=== PATIENT | male | born 1990 | race American Indian/Alaskan Native ===

== ENCOUNTER 2017-10-04 13:46 | Emergency (ER) | payer OTHER ==
[2017-10-04] MEDS ORDERED: TYLENOL #3 PO ONE (18:18)
--- NOTE | 2017-10-04 18:18 | Emergency Department Report ---
ED Abdominal Pain HPI - General Chief Complaint: Headache Stated Complaint: FLU-LIKE SYMPTOMS Time Seen by Provider: 10/04/17 17:33 Source: patient Mode of arrival: Ambulatory Limitations: No Limitations - Related Data Allergies Allergy/AdvReac Type Severity Reaction Status Date / Time No Known Allergies Allergy Unverified 10/04/17 13:50 ED Review of Systems ROS: Stated complaint: FLU-LIKE SYMPTOMS Other details as noted in HPI ED Past Medical Hx - Past Medical History Previous Medical History?: No - Surgical History Past Surgical History?: No - Social History Smoking Status: Current Every Day Smoker Substance Use Type: None ED Physical Exam - General Limitations: No Limitations ED Course Vital Signs 10/04/17 13:50 Temperature 99.8 F H Pulse Rate 104 H Respiratory 20 Rate Blood Pressure 145/100 O2 Sat by Pulse 100 Oximetry Critical care attestation.: If time is entered above; I have spent that time in minutes in the direct care of this critically ill patient, excluding procedure time. ED Disposition Condition: Stable Referrals: PRIMARY CARE [Primary Care Provider] - 3-5 Days
--- NOTE | 2017-10-04 19:46 | Emergency Department Report ---
ED Headache HPI - General Chief Complaint: Headache Stated Complaint: FLU-LIKE SYMPTOMS Time Seen by Provider: 10/04/17 17:33 Source: patient, family Exam Limitations: no limitations (no better than when I first when I first was emergent at 4 shifts for [employer] more doctors and he had a whole bunch of experienced) - History of Present Illness Initial Comments: Old from the left when trying came patient reports that he feels hot. The inside and cold on the outside. He reports he has headache with sore throat that started 2 days ago. He denies any nasal congestion, drainage, cough, difficulty breathing, chest pain. Patient reports that he took over-the- counter medication but it did not help. Blood pressure is 145/100 and he said that he does have high blood pressure but he's been told that his blood pressure has been high in the past. Reports headache in the front of his head that feels like pressure. Patient had 5 out of 10. Pain is intermittent. Timing/Duration: waxing and waning, other (2 days) Quality: moderate (5/10) Head Injury Location: frontal Recent Head Trauma: no recent headache/trauma Modifying Factors: improves with: medication, rest Associated Symptoms: fever/chills. denies: confusion, fatigue, facial pain, flushing, loss of consciousness, nausea/vomiting, nasal congestion, nasal drainage, numbness in legs/feet, rash, seizures, sinus infection, stiff neck, vision changes, weakness Allergies/Adverse Reactions: Allergies No Known Allergies Allergy (Unverified 10/04/17 13:50) Home Medications: Ambulatory Orders Ibuprofen [Motrin] 600 mg PO Q8H PRN 5 Days #15 tablet 10/04/17 Penicillin V Potassium 500 mg PO Q8H 10 Days #30 tablet 10/04/17 traMADol [Ultram] 50 mg PO Q6HR PRN 5 Days #20 tablet 10/04/17 ED Review of Systems ROS: Stated complaint: FLU-LIKE SYMPTOMS Other details as noted in HPI Comment: All other systems reviewed and negative Constitutional: no symptoms reported Eyes: denies: eye pain, vision change ENT: throat pain. denies: ear pain, dental pain, congestion Respiratory: no symptoms reported Cardiovascular: denies: chest pain, palpitations, dyspnea on exertion, edema, syncope, paroxysmal nocturnal dyspnea Gastrointestinal: denies: abdominal pain, nausea, vomiting, diarrhea, constipation Musculoskeletal: myalgia (body aches). denies: back pain, joint swelling, arthralgia Skin: denies: rash Neurological: headache. denies: weakness, numbness, paresthesias, confusion, abnormal gait, other ED Past Medical Hx - Past Medical History Previous Medical History?: No - Surgical History Past Surgical History?: No - Family History Family history: no significant - Social History Smoking Status: Current Every Day Smoker Substance Use Type: None - Medications Home Medications: Home Medications Medication Instructions Recorded Confirmed Last Taken Type Ibuprofen [Motrin] 600 mg PO Q8H PRN 5 Days #15 tablet 10/04/17 Unknown Rx Penicillin V Potassium 500 mg PO Q8H 10 Days #30 tablet 10/04/17 Unknown Rx traMADol [Ultram] 50 mg PO Q6HR PRN 5 Days #20 tablet 10/04/17 Unknown Rx ED Physical Exam - General Limitations: No Limitations General appearance: alert, in no apparent distress - Head Head exam: Present: atraumatic, normocephalic, normal inspection - Expanded Head Exam Expanded Head exam: Absent: laceration, abrasion, contusion, hematoma, racoon eyes, billings's sign, general tenderness, tenderness of temporal artery, CSF rhinorrhea , CSF otorrhea - Eye Eye exam: Present: normal appearance, PERRL, EOMI. Absent: nystagmus, periorbital swelling, periorbital tenderness Pupils: Present: normal accommodation - ENT ENT exam: Present: mucous membranes moist, TM's normal bilaterally, normal external ear exam, other (Nasal mucosa is normal.). Absent: normal exam, normal orophraynx (patient with pharyngeal erythema, swelling and exudate. Oral airways patent. Uvula is midline and no peritonsillar abscess noted.) - Neck Neck exam: Present: normal inspection, full ROM, lymphadenopathy (enlarged anterior cervical lymph nodes), other (No C-spine tenderness). Absent: tenderness, meningismus, thyromegaly - Expanded Neck Exam Expanded Neck exam: Absent: tenderness, midline deformity, anterior neck swelling, thyroid mass, carotid bruit, tracheal deviation - Respiratory Respiratory exam: Present: normal lung sounds bilaterally. Absent: respiratory distress, chest wall tenderness, accessory muscle use - Cardiovascular Cardiovascular Exam: Present: normal rhythm, tachycardia, normal heart sounds. Absent: systolic murmur, diastolic murmur - GI/Abdominal GI/Abdominal exam: Present: soft, normal bowel sounds. Absent: distended, tenderness, guarding, rebound, rigid, organomegaly, mass, bruit, pulsatile mass , hernia - Extremities Exam Extremities exam: Present: normal inspection, full ROM, normal capillary refill , other (no clubbing, cyanosis or edema. +2 pulses to all extremities. No neurovascular compromise.). Absent: tenderness, pedal edema, joint swelling, calf tenderness - Back Exam Back exam: Present: normal inspection, full ROM, other (ambulates without any difficulties.). Absent: tenderness, CVA tenderness (R), CVA tenderness (L), muscle spasm, paraspinal tenderness, vertebral tenderness, rash noted - Neurological Exam Neurological exam: Present: alert, oriented X3, normal gait, reflexes normal. Absent: motor sensory deficit - Expanded Neurological Exam Expanded Neurological exam: Absent: innattentive, memory loss-remote event, memory loss- recent event, ataxia, receptive aphasia, expressive aphasia, total aphasia, tremor, protecting the airway Patient oriented to: Present: person, place, time Speech: Present: fluid speech Cranial nerves: EOM's Intact: Normal, Gag Reflex: Normal, Tongue Deviation: Normal, Nystagmus: Normal, Facial Sensation: Normal, Facial Palsy with Forehead Movement: Normal, Facial Palsy without Forehead Movement: Normal Cerebellar function: Finger to Nose: Normal, Romberg: Normal Upper motor neuron: Pronator Drift: Normal, Sensory Extinction: Normal Sensory exam: Upper Extremity Light Touch: Normal, Upper Extremity Pin Prick: Normal, Upper Extremity Temperature: Normal, UE 2 Point Discrimination: Normal, Lower Extremity Light Touch: Normal, Lower Extremity Pin Prick: Normal, Lower Extremity Temperature: Normal, LE 2 Point Discrimination: Normal Motor strength exam: RUE: 5, LUE: 5, RLE: 5, LLE: 5 DTR: bicep (R): 2+, bicep (L): 2+, tricep (R): 2+, tricep (L): 2+, knee (R): 2+ , knee (L): 2+, ankle (R): 2+, ankle (L): 2+ Best Eye Response (Naeem): (4) open spontaneously Best Motor Response (Mercer): (6) obeys commands Best Verbal Response (Mercer): (5) oriented Naeem Total: 15 - Psychiatric Psychiatric exam: Present: normal affect, normal mood - Skin Skin exam: Present: warm, dry, intact, normal color. Absent: rash ED Course Vital Signs 10/04/17 13:50 Temperature 99.8 F H Pulse Rate 104 H Respiratory 20 Rate Blood Pressure 145/100 O2 Sat by Pulse 100 Oximetry Last temperature was 99.2 and heart rate apical is at 82. - Reevaluation(s) Reevaluation #1: 10/04/17 19:00 Patient complaining a headache with sore throats and fever and chills. Patient given Tylenol 3 2 tablets in the emergency room and strep and flu collected and pending. Patient able to tolerate oral liquids in the emergency room without any nausea or vomiting. Patient is neurologically intact. Reevaluation #2: 10/04/17 19:48 Patient remained neurologically intact. Strep and flu test came back negative strep culture is pending. Patient reports he still has headache although it's better. Patient to receive Motrin 800 mg by mouth. He is drinking oral fluids and tolerating well. Reevaluation #3: 10/04/17 20:23 Patient reports that this pain is better and he is ready to go. He is able to tolerate fluid throughout his hospital stay without any nausea or vomiting. Temperature is better and his heart rate is less than 80. Blood pressure still mildly elevated but patient has elevated blood pressure in the past. ED Medical Decision Making - Lab Data Rapid strep test negative and cultures are pending The and B- - Medical Decision Making ED Course: She presented to emergency room complaining of headache frontally and also fever, chills, body ache with absence of respiratory symptoms. He is also complaining of sore throat worse with yawning, swallowing and eating. Denies any drooling. Physical findings for exudative oropharynx with erythema, enlarged anterior cervical lymph nodes bilaterally, fever with tachycardia, neck exam, neurological exam, back and abdominal exam is normal. Patient had strep which show rapid strep is negative and culture pending. Influenza A and B -. Based on Centor criteria with patient having exudative pharyngitis, enlarged cervical lymph nodes, fever and chills, tachycardia and headache without any respiratory symptoms I we will go ahead and treat patient for throat. Rapid strep test is not always when used in diagnosis of strep throat. This was explained to patient in detail and he voiced understanding. Patient discharged home with prescription for penicillin VK, Ultram and Motrin. His heart rate is stabilized, blood pressure still mildly elevated and is temperature is low-grade. Patient orally challenge in the emergency room and tolerated liquids well. He knows he will need to follow up with outpatient primary care and I will refer him as needed. He should also aware that his blood pressures elevated and that he needs to keep a log of his blood pressure and take to primary care visit with him. Critical care attestation.: If time is entered above; I have spent that time in minutes in the direct care of this critically ill patient, excluding procedure time. ED Disposition Clinical Impression: Exudative pharyngitis, Body aches, Fever in adult, Cervical adenopathy, Elevated blood-pressure reading without diagnosis of hypertension Nonintractable episodic headache Qualifiers: Headache type: unspecified Qualified Code(s): R51 - Headache Disposition: DC- TO HOME OR SELFCARE Is pt being admited?: No Does the pt Need Aspirin: No Condition: Stable Instructions: Pharyngitis (ED), Strep Throat (ED), Fever in Adults (ED), Acute Headache (ED), Hypertension (ED) Additional Instructions: Please gargle with warm saltwater 3 times a day Take Ultram for headache but please do not drive or operate heavy machinery while taking this medication Please rest for 72 hours Take Antibiotic as prescribed InCrease your fluid intake Followup with your primary care physician in 2 days and if he do not have one you can follow-up at [facility] Prescriptions: Ibuprofen [Motrin] 600 mg PO Q8H PRN 5 Days #15 tablet PRN Reason: Pain Penicillin V Potassium 500 mg PO Q8H 10 Days #30 tablet traMADol [Ultram] 50 mg PO Q6HR PRN 5 Days #20 tablet PRN Reason: Pain Referrals: PRIMARY CARE, [Primary Care Provider] - 10/06/[address] [facility] [place] [Outside] - 10/06/17 Forms: Accompanied Note, Work/School Release Form(ED)
[2017-10-04] MEDS ORDERED: MOTRIN PO ONE (19:48)
[2017-10-04 22:53] VITALS: BP 158/100
== END 2017-10-04 20:40 | disposition home or self-care (01) ==
LOC: ED 13:46
DX: J02.9 Acute pharyngitis, unspecified (principal); R59.0 Localized enlarged lymph nodes; R51 Headache; M79.1 Myalgia; R03.0 Elevated blood-pressure reading, without diagnosis of hypertension; F17.200 Nicotine dependence, unspecified, uncomplicated
CPT/HCPCS: 87116; 87400; 87430; 99283

== ENCOUNTER 2019-06-19 22:42 | Emergency (ER) | payer SELFPAY ==
[2019-06-19 22:52] VITALS: BP 145/92
[2019-06-20] MEDS ORDERED: TYLENOL PO ONE (01:08)
--- NOTE | 2019-06-20 01:18 | Emergency Department Report ---
ED Headache HPI - General Chief Complaint: Headache Stated Complaint: HEADACHES Time Seen by Provider: 06/20/19 01:07 Source: patient Exam Limitations: no limitations - History of Present Illness Initial Comments: 28-year-old male presents to the emergency room for intermittent headaches for over a year. Patient has not taken anything for his headache. Patient states he did not know what to take for headache. Patient states that he'll often throb and tingle. Patient denies any nausea vomiting no fever no chills no facial droop no weakness. Patient denies any trauma. Timing/Duration: other (over a year) Quality: throbbing Recent Head Trauma: no recent headache/trauma Allergies/Adverse Reactions: Allergies No Known Allergies Allergy (Unverified 10/04/17 13:50) Home Medications: Ambulatory Orders Ibuprofen [Motrin] 600 mg PO Q8H PRN 5 Days #15 tablet 10/04/17 Penicillin V Potassium 500 mg PO Q8H 10 Days #30 tablet 10/04/17 traMADol [Ultram] 50 mg PO Q6HR PRN 5 Days #20 tablet 10/04/17 ED Review of Systems ROS: Stated complaint: HEADACHES Other details as noted in HPI Comment: All other systems reviewed and negative ED Past Medical Hx - Past Medical History Previous Medical History?: No - Surgical History Past Surgical History?: No - Social History Smoking Status: Never Smoker Substance Use Type: None - Medications Home Medications: Home Medications Medication Instructions Recorded Confirmed Last Taken Type Ibuprofen [Motrin] 600 mg PO Q8H PRN 5 Days #15 tablet 10/04/17 Unknown Rx Penicillin V Potassium 500 mg PO Q8H 10 Days #30 tablet 10/04/17 Unknown Rx traMADol [Ultram] 50 mg PO Q6HR PRN 5 Days #20 tablet 10/04/17 Unknown Rx ED Physical Exam - General Limitations: No Limitations General appearance: alert, in no apparent distress - Head Head exam: Present: atraumatic, normocephalic - Eye Eye exam: Present: normal appearance - ENT ENT exam: Present: mucous membranes moist - Neurological Exam Neurological exam: Present: alert, oriented X3, normal gait - Psychiatric Psychiatric exam: Present: normal affect, normal mood - Skin Skin exam: Present: warm, dry, intact, normal color. Absent: rash ED Course Vital Signs 06/19/19 06/19/19 22:47 23:13 Temperature 98.6 F 98.6 F Pulse Rate 93 H 92 H Respiratory 18 18 Rate Blood Pressure 145/92 145/92 O2 Sat by Pulse 100 100 Oximetry ED Medical Decision Making - Medical Decision Making 28-year-old male presents to the emergency room for intermittent headaches for over a year. Patient has not taken anything for his headache. Patient states he did not know what to take for headache. Patient states that he'll often throb and tingle. Patient denies any nausea vomiting no fever no chills no faci al droop no weakness. Patient denies any trauma. Critical care attestation.: If time is entered above; I have spent that time in minutes in the direct care of this critically ill patient, excluding procedure time. ED Disposition Condition: Stable Referrals: SHAYLEE SHAY MD [Primary Care Provider] - 3-5 Days
== END 2019-06-20 02:30 | disposition left against medical advice (07) ==
LOC: ED 22:42
DX: R51 Headache (principal); Z79.899 Other long term (current) drug therapy

== ENCOUNTER 2019-06-24 13:38 | Emergency (ER) | payer SELFPAY ==
--- NOTE | 2019-06-24 13:57 | Emergency Department Report ---
Chief Complaint: Urogenital-Male Stated Complaint: STD CHECK Time Seen by Provider: 06/24/19 13:53 - HPI History of Present Illness: NO SYMPTOMS WOMAN FRIEND TOLD HIM SHE HAS TRICH AND HE NEEDS TREATED NO DISCHARGE NO TESTICULAR PAIN NO DYSURIA - ROS Review of Systems: NO SYMPTOMS - Exam Vital Signs: Vital Signs 06/24/19 14:05 Temperature 98.1 F Pulse Rate 106 H Respiratory 18 Rate Blood Pressure 140/88 O2 Sat by Pulse 100 Oximetry Physical Exam: NAD VSS A/O ABD SNT NO CVA TENDERNESS MSE screening note: Focused history and physical exam performed. Due to findings the following was ordered: NO LIFE THREAT PT EDUCATED AND GIVEN APPROPRIATE REFERRALS Patient discussed with doctor:: DIDIER LOVELACE ED Medical Decision Making - Medical Decision Making NO SYMPTOMS NO DC NO TESTICULAR PAIN EDUCATED ON STI PREVENTION, DIAGNOSIS AND TREATMENT ED Disposition for MSE Clinical Impression: Well adult Disposition: DC-01 TO HOME OR SELFCARE Is pt being admited?: No Does the pt Need Aspirin: No Condition: Stable Instructions: Chlamydia Infection (ED), Sexually Transmitted Diseases (ED), Safe Sex (ED), Gonococcal Urethritis (ED) Additional Instructions: SEE ATTACHED Time of Disposition: 14:05
[2019-06-24 14:07] VITALS: BP 140/88
== END 2019-06-24 14:05 | disposition home or self-care (01) ==
LOC: ED 13:38
DX: Z00.00 Encounter for general adult medical examination without abnormal findings (principal)

== ENCOUNTER 2020-01-11 08:16 | Emergency (ER) | payer SELFPAY ==
[2020-01-11 08:25] VITALS: BP 158/103
--- NOTE | 2020-01-11 12:00 | Emergency Department Report ---
Upper Extremity - HPI Chief Complaint: Extremity Injury, Upper Stated Complaint: RIGHT SHOULDER PAIN Time Seen by Provider: 01/11/20 11:45 Upper Extremity: Right Shoulder (Status post treatment follow-up plan basketball 3 to 4 months ago reports having continued pain off and on to the right shoulder since that time and he which he notes some occasional swelling off and on around the area of the clavicle reports for range of motion no numbness or numbness or tingling no shortness of breath no chest pain palpitations no fever chills or sweats.) Symptoms: Yes Pain with Movement, No Deformity, No Numbness, No Weakness, No Swelling, No Bruising/Ecchymosis, No Laceration or Abrasion ED Review of Systems ROS: Stated complaint: RIGHT SHOULDER PAIN Other details as noted in HPI Comment: All other systems reviewed and negative ED Past Medical Hx - Past Medical History Previous Medical History?: No - Surgical History Past Surgical History?: Yes Additional Surgical History: left arm - Social History Smoking Status: Current Every Day Smoker Substance Use Type: Alcohol - Medications Home Medications: Home Medications Medication Instructions Recorded Confirmed Last Taken Type Ibuprofen [Motrin] 600 mg PO Q8H PRN 5 Days #15 tablet 10/04/17 Unknown Rx Penicillin V Potassium 500 mg PO Q8H 10 Days #30 tablet 10/04/17 Unknown Rx traMADoL [Ultram] 50 mg PO Q6HR PRN 5 Days #20 tablet 10/04/17 Unknown Rx Upper Extremity Exam - Exam General: Vital signs noted. No distress. Alert and acting appropriately. Head and Torso: No HEENT Abnormality, No Neck Tenderness, No Chest/Lungs Abnormality, No Abdominal Tenderness, No Back Tenderness Shoulder Exam: Yes Normal Range of Motion in Shoulder, No Shoulder Tenderness, No Clavicle Tenderness, No Shoulder Deformity, No AC Joint Tenderness Arm Exam: No Arm/Humerus Tenderness, No Arm Deformity Elbow: No Elbow Tenderness, No Normal Range of Motion in Elbow, No Elbow Deformity Forearm: No Forearm Tenderness, No Forearm Deformity, No Pain with Pronation, No Pain with Supination Wrist: Yes Normal ROM in Wrist, No Wrist Tenderness, No Wrist Deformity, No Snuffbox Tenderness, No Pain with Axial Thumb Compression Hand: Yes Normal ROM in Digit(s), No Hand Tenderness, No Hand Deformity, No Digit Tenderness, No Digit(s) Deformity, No Tendon Dysfunction CMS Exam: No Broken Skin, No Normal Distal Pulses, No Normal Capillary Refill, No Normal Distal Sensation ED Course Vital Signs 01/11/20 08:20 Temperature 98.3 F Pulse Rate 128 H Respiratory 19 Rate Blood Pressure 158/103 O2 Sat by Pulse 100 Oximetry ED Medical Decision Making - Medical Decision Making 29-year-old male status post treatment for 3 to 4 months ago with continued nagging shoulder pain has not tried any [id number] analgesics or ice. Is no acute distress he he is ambulatory with no limitations no shortness of breath chest pain or palpitations. Heart rate did show to be 128 on the triage a bdomen examination heart rate was only 87 Critical care attestation.: If time is entered above; I have spent that time in minutes in the direct care of this critically ill patient, excluding procedure time. ED Disposition Clinical Impression: Chronic right shoulder pain Disposition: Z- MED SCREENING EXAM-LEFT Is pt being admited?: No Does the pt Need Aspirin: No Condition: Stable Instructions: Chronic Pain (ED) Additional Instructions: Please use ice and [id number] anti-inflammatories as we discussed follow- up with your primary care provider or orthopedic as needed Referrals: FABIANO LOCO MD [Primary Care Provider] - 3-5 Days JAYCE SELBY MD [Staff Physician] - 3-5 Days
== END 2020-01-11 12:22 | disposition left against medical advice (07) ==
LOC: ED 08:16
DX: M25.511 Pain in right shoulder (principal); G89.29 Other chronic pain; F17.200 Nicotine dependence, unspecified, uncomplicated; Z79.1 Long term (current) use of non-steroidal anti-inflammatories (NSAID); Z79.899 Other long term (current) drug therapy

== ENCOUNTER 2022-04-17 07:34 | Emergency (ER) | payer SELFPAY ==
--- NOTE | 2022-04-17 12:03 | Emergency Department Report ---
ED General Adult HPI - General Chief complaint: Medical Clearance Stated complaint: SWOLLOW SOME PLASTIC Time Seen by Provider: 04/17/22 11:12 Source: patient Mode of arrival: Ambulatory Limitations: No Limitations - History of Present Illness Initial comments: This is a 31-year-old male nontoxic, well nourished in appearance, no acute signs of distress presents to the ED with c/o of possible swallowing a plastic wrapper. Patient stated that he was eating [place] fries and thought there was a possible plastic wrapper which was not there after he finished his [place]. Otherwise denies any other symptoms or complaints. Denies any nausea, vomiting, chest pain, shortness of breath, abdominal pain, fever, chills, headache, stiff neck, numbness, tingling. Patient denies any allergies or significant past medical history. -: days(s) (1) Severity scale (0 -10): 0 Improves with: none Worsens with: none Associated Symptoms: denies other symptoms. denies: confusion, chest pain, cough, diaphoresis, fever/chills, headaches, loss of appetite, malaise, nausea/vomiting, rash, seizure, shortness of breath, syncope, weakness Treatments Prior to Arrival: none - Related Data Previous Rx's Medication Instructions Recorded Last Taken Type Ibuprofen [Motrin] 600 mg PO Q8H PRN 5 Days #15 tablet 10/04/17 Unknown Rx Penicillin V Potassium 500 mg PO Q8H 10 Days #30 tablet 10/04/17 Unknown Rx traMADoL [Ultram] 50 mg PO Q6HR PRN 5 Days #20 tablet 10/04/17 Unknown Rx Allergies Allergy/AdvReac Type Severity Reaction Status Date / Time No Known Allergies Allergy Unverified 10/04/17 13:50 ED Review of Systems ROS: Stated complaint: SWOLLOW SOME PLASTIC Other details as noted in HPI Comment: All other systems reviewed and negative Constitutional: denies: chills, fever Eyes: denies: eye pain, eye discharge, vision change ENT: denies: ear pain, throat pain Respiratory: denies: cough, shortness of breath, wheezing Cardiovascular: denies: chest pain, palpitations Endocrine: no symptoms reported Gastrointestinal: denies: abdominal pain, nausea, diarrhea Genitourinary: denies: urgency, dysuria Musculoskeletal: denies: back pain, joint swelling, arthralgia Skin: denies: rash, lesions Neurological: denies: headache, weakness, paresthesias Psychiatric: denies: anxiety, depression Hematological/Lymphatic: denies: easy bleeding, easy bruising ED Past Medical Hx - Past Medical History Previous Medical History?: Yes Hx Hypertension: Yes (no meds) - Surgical History Past Surgical History?: Yes Additional Surgical History: left arm - Social History Smoking Status: Current Every Day Smoker Substance Use Type: Alcohol - Medications Home Medications: Home Medications Medication Instructions Recorded Confirmed Last Taken Type Ibuprofen [Motrin] 600 mg PO Q8H PRN 5 Days #15 tablet 10/04/17 Unknown Rx Penicillin V Potassium 500 mg PO Q8H 10 Days #30 tablet 10/04/17 Unknown Rx traMADoL [Ultram] 50 mg PO Q6HR PRN 5 Days #20 tablet 10/04/17 Unknown Rx ED Physical Exam - General Limitations: No Limitations General appearance: alert, in no apparent distress - Head Head exam: Present: atraumatic, normocephalic - Eye Eye exam: Present: normal appearance - ENT ENT exam: Present: normal exam, normal orophraynx - Neck Neck exam: Present: normal inspection, full ROM. Absent: lymphadenopathy - Respiratory Respiratory exam: Present: normal lung sounds bilaterally. Absent: respiratory distress, wheezes, rales, rhonchi, stridor, chest wall tenderness, accessory muscle use, decreased breath sounds, prolonged expiratory - Cardiovascular Cardiovascular Exam: Present: regular rate, normal rhythm, normal heart sounds. Absent: bradycardia, tachycardia, irregular rhythm, systolic murmur, diastolic murmur, rubs, gallop - GI/Abdominal GI/Abdominal exam: Present: soft, normal bowel sounds. Absent: distended, tenderness, guarding, rebound, rigid, diminished bowel sounds - Extremities Exam Extremities exam: Present: full ROM - Back Exam Back exam: Present: full ROM - Neurological Exam Neurological exam: Present: alert, oriented X3, normal gait - Psychiatric Psychiatric exam: Present: normal affect, normal mood - Skin Skin exam: Present: warm, dry, intact, normal color. Absent: rash ED Course Vital Signs 04/17/22 04/17/22 08:13 11:15 Temperature 98.2 F 98.9 F Pulse Rate 92 H 98 H Respiratory 20 16 Rate Blood Pressure 174/103 162/102 [Right] O2 Sat by Pulse 100 98 Oximetry - Reevaluation(s) Reevaluation #1: 04/17/22 12:06 Patient is speaking in full sentences with no signs of distress noted. ED Medical Decision Making - Radiology Data [address] [address] XRay Report Signed Patient: RYAN REYES MR#: [id number] : 1990 Acct:[id number] Age/Sex: 31 / M ADM Date: 04/17/22 Loc: ED Attending Dr: Ordering Physician: VINOD REYNOLDS NP Date of Service: 04/17/22 Procedure(s): XR neck soft tissue Accession Number(s): [id number] cc: VINOD REYNOLDS NP Fluoro Time In Minutes: Soft tissue neck INDICATION: Swallowed foreign body FINDINGS: Prevertebral soft tissues appear normal. No radiopaque foreign body is seen. IMPRESSION: No radiopaque foreign body is seen within the neck chest or abdomen. Signer Name: Jose Rayo MD Signed: 04/17/2022 12:19 PM Workstation Name: [id number] Transcribed By: CW Dictated By: JIM RAYO MD Electronically Authenticated By: JIM RAYO MD Signed Date/Time: 04/17/22 121 DD/ 1218 TD/TT: [address] [address] XRay Report Signed Patient: RYAN REYES MR#: [id number] : 1990 Acct:[id number] Age/Sex: 31 / M ADM Date: 04/17/22 Loc: ED Attending Dr: Ordering Physician: VINOD REYNOLDS NP Date of Service: 04/17/22 Procedure(s): XR abd series w cxr 1V Accession Number(s): [id number] cc: VINOD REYNOLDS NP Fluoro Time In Minutes: Abdominal series with chest x-ray INDICATION: Foreign body FINDINGS: Minimal atelectasis in the left lower lung. Otherwise lungs are clear. Nonspecific bowel gas pattern is seen within the upper abdomen. No free air. No definite foreign body is seen within the chest or abdomen. Signer Name: Jose Rayo MD Signed: 04/17/2022 12:18 PM Workstation Name: [id number] Transcribed By: PRAVEENA Dictated By: JIM RAYO MD Electronically Authenticated By: JIM RAYO MD Signed Date/Time: 04/17/221217 DD/ 17 TD/TT: - Medical Decision Making Patient is stable and was examined by me. Physical exam otherwise is unremarkable. Patient is notified of the imaging results with no questions noted by the patient. Patient was instructed to follow-up with a primary care doctor in 3-5 days or if symptoms worsen and continue return to emergency room as soon as possible. At time of discharge, the patient does not seem toxic or ill in appearance. No acute signs of distress noted. Patient agrees to discharge treatment plan of care. No further questions noted by the patient. Critical care attestation.: If time is entered above; I have spent that time in minutes in the direct care of this critically ill patient, excluding procedure time. ED Disposition Clinical Impression: Physical exam Disposition: 01 HOME / SELF CARE / HOMELESS Is pt being admited?: No Does the pt Need Aspirin: No Condition: Stable Additional Instructions: Follow-up with a primary care doctor in 3-5 days or if symptoms worsen and continue return to emergency room as soon as possible. Referrals: BIRGIT GILLETTE MD [Primary Care Provider] - 3-5 Days PRIMARY CAREMD [Referring] - 3-5 Days Time of Disposition: 12:26
--- NOTE | 2022-04-17 12:22 | XRay Report ---
Abdominal series with chest x-ray INDICATION: Foreign body FINDINGS: Minimal atelectasis in the left lower lung. Otherwise lungs are clear. Nonspecific bowel ga s pattern is seen within the upper abdomen. No free air. No definite foreign body is seen within the chest or abdomen. Signer Name: Jose Rayo MD Signed: 04/17/2022 12:18 PM Workstation Name: [id number]
--- NOTE | 2022-04-17 12:24 | XRay Report ---
Soft tissue neck INDICATION: Swallowed foreign body FINDINGS: Prevertebral soft tissues appear normal. No radiopaque foreign body is seen. IMPRESSION: No radiopaque foreign body is seen within the neck chest or abdomen. Signer Name: Jose Rayo MD Signed: 04/17/2022 12:19 PM Workstation Name: [id number]
[2022-04-17 13:02] VITALS: BP 142/87
== END 2022-04-17 13:01 | disposition home or self-care (01) ==
LOC: ED 07:34
DX: T18.2XXA Foreign body in stomach, initial encounter (principal); I10 Essential (primary) hypertension; F17.200 Nicotine dependence, unspecified, uncomplicated; Z79.899 Other long term (current) drug therapy; X58.XXXA Exposure to other specified factors, initial encounter; Y93.89 Activity, other specified; Y92.89 Other specified places as the place of occurrence of the external cause; Y99.8 Other external cause status
CPT/HCPCS: 70360; 74022; 99284